=== PATIENT | female | born 1950 | race Caucasian/White ===

== ENCOUNTER 2022-04-29 07:17 | Day surgery (SDC) | payer MEDICAID ==
[~2022-04-29] VITALS: Ht 180.3 cm; Wt 75.3 kg
[2022-04-29] MEDS ORDERED: fentaNYL CITRATE/PF 100 MCG/2 ML AMP ONE (08:45)
[2022-04-29] MEDS ORDERED: MIDAZOLAM HCL 5 MG/5 ML VIAL ONE (08:45)
[2022-04-29 13:14] VITALS: BP_SYST 131
== END 2022-04-29 10:24 | disposition home or self-care (01) ==
LOC: SDS 07:17 → SMU 07:18 → SDS 10:24
PROVIDERS: ATTEND Internal Medicine Gastroenterology
DX: R19.4 Change in bowel habit (principal); K63.5 Polyp of colon; K64.9 Unspecified hemorrhoids; E11.9 Type 2 diabetes mellitus without complications; Z79.899 Other long term (current) drug therapy; Z20.822 Contact with and (suspected) exposure to COVID-19
CPT/HCPCS: 45380; 87426; 82962; 36415; 88305; 99152; G0378; J2250; J3010